=== PATIENT | male | born 1960 | race Caucasian/White ===

== ENCOUNTER 2017-08-06 10:45 | Inpatient (IN) | payer SELFPAY ==
[~2017-08-06] VITALS: Ht 185.4 cm; Wt 82.1 kg
[2017-08-06] VITALS (10 sets, daily range): BP systolic 110–163; BP diastolic 62–103; PULSE 83–136; RESP 18–25; TEMP 98.1–103.1; O2SAT 95–99
[~2017-08-06 10:45] MED LIST: 1-ME1LIQ PO; CEPH500C3 PO; CYCL-36 PO; IBUP800 PO; NAPR500 PO; PERC5TAB12 PO
[2017-08-06] MEDS ORDERED: IBUPROFEN 800 MG TAB PO ONE (11:00)
[2017-08-06] MEDS ORDERED: SODIUM CHLOR 0.9% 1000 ML INJ 1,000 ML IV ONE ×3 (11:00→12:30)
[2017-08-06] MEDS ORDERED: VANCOMYCIN INJ 1,000 MG in SODIUM CHLOR 0.9% 250 ML INJ 250 ML IV ONE (11:15)
[2017-08-06] MEDS ORDERED: PIPERACIL-TAZO 3.375 GM PREMIX 50 ML IV ONE (11:15)
--- NOTE | 2017-08-06 11:15 | PD ---
HPI Chief Complaint: General Weakness Time Seen by Provider: 11:08 Travel History International Travel<30 days: No Contact w/Intl Traveler<30days: No Traveled to known affect area: No History of Present Illness HPI This is a 57-year-old male with history of hypertension who presents via EMS for evaluation. For the past 4 days the patient has been complaining of pain to the right shinto region. He reports that he lives with his brother. Today he was walking from his brother's house to a friend's house when he felt very weak and fell in the field. At this point, the patient is complaining of generalized weakness, right shinto pain. Pain is an aching pain which is constant with no alleviating factors. he denies any blurred vision, chest pain , cough, sore throat, abdominal pain, nausea or vomiting, diarrhea or constipation. He denies any history of IV drug abuse. He endorses regular consumption of alcohol. He has no other complaints at this time. PFSH Past Medical History Hx Anticoagulant Therapy: No Blood Disorders: No Cancer: No Cardiovascular Problems: Yes (HTN) Chemotherapy: No Cerebrovascular Accident: No Diabetes: No Diminished Hearing: No Endocrine: No Gastrointestinal Disorders: Yes Genitourinary: No Hypertension: Yes Immune Disorder: No Implanted Vascular Access Dvce: No Musculoskeletal: No Neurologic: No Psychiatric: No Reproductive: No Respiratory: No Immunizations Current: No Pneumonia: Yes Radiation Therapy: No Tetanus Vaccination: < 5 Years Influenza Vaccination: No Past Surgical History Abdominal Surgery: Yes (APPENDIX REMOVAL A TEENAGER) AICD: No 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 denies Reported Meds & Prescriptions Reported Meds & Active Scripts Active No Active Prescriptions or Reported Medications Review of Systems Except as stated in HPI: all other systems reviewed are Neg Physical Exam Narrative GENERAL: This is a disheveled ill appearing male who is awake and alert, answering questions appropriately. SKIN: Warm and dry. There is some erythema and induration of the right shinto region. No discrete vesicles or papular lesions noted. HEAD: Atraumatic. Normocephalic. EYES: Pupils equal and round. No scleral icterus. No injection or drainage. ENT: No nasal bleeding or discharge. Mucous membranes pink and moist. Poor dentition without any point tenderness to palpation to any of the teeth, no trismus, no intraoral edema or erythema. NECK: Trachea midline. No JVD. No lymphadenopathy. Neck supple full range of motion. CARDIOVASCULAR: Regular rate and rhythm. No murmur appreciated. RESPIRATORY: No accessory muscle use. Clear to auscultation. Breath sounds equal bilaterally. GASTROINTESTINAL: Abdomen soft, non-tender, nondistended. Hepatic and splenic margins not palpable. MUSCULOSKELETAL: No obvious deformities. No clubbing. No cyanosis. No edema. NEUROLOGICAL: Awake and alert. No obvious cranial nerve deficits. Motor grossly within normal limits. Normal speech. PSYCHIATRIC: Appropriate mood and affect; insight and judgment normal. Data Data Last Documented VS Vital Signs Date Time Temp Pulse Resp B/P (MAP) Pulse Ox O2 Delivery O2 Flow Rate FiO2 08/06/17 13:00 108 25 117/65 (82) 98 Nasal Cannula 2.00 08/06/17 10:52 103.1 Orders Orders Electrocardiogram (08/06/17 11:00) Complete Blood Count With Diff (08/06/17 11:00) Comprehensive Metabolic Panel (08/06/17 11:00) Lactic Acid Sepsis Protocol (08/06/17 11:00) Magnesium (Mg) (08/06/17 11:00) Phosphorus (Po4) (08/06/17 11:00) Urinalysis - C+S If Indicated (08/06/17 11:00) Blood Culture (08/06/17 11:00) Chest, Single Ap (08/06/17 11:00) Ecg Monitoring (08/06/17 11:00) Iv Access Insert/Monitor (08/06/17 11:00) Oximetry (08/06/17 11:00) Ibuprofen (Motrin) (08/06/17 11:00) Sodium Chlor 0.9% 1000 Ml Inj (Ns 1000 M (08/06/17 11:00) Sodium Chlor 0.9% 1000 Ml Inj (Ns 1000 M (08/06/17 11:00) Ct Facial Bones W Iv Contrast (08/06/17 ) Ct Brain W/O Iv Contrast(Rout) (08/06/17 ) Vancomycin Inj (Vancomycin Inj) (08/06/17 11:15) Piperacil-Tazo 3.375 Gm Premix (Zosyn 3. (08/06/17 11:15) Creatine Kinase (Cpk) (08/06/17 11:15) Troponin I (08/06/17 11:15) Blood Gas Venous (Vbg) (08/06/17 11:20) Sodium Chlor 0.9% 1000 Ml Inj (Ns 1000 M (08/06/17 12:30) Potassium Chlor 20 Meq Premix (Kcl 20 Me (08/06/17 12:30) Magnesium Sulfate 1 Gm Premix (Magnesium (08/06/17 12:30) Prothrombin Time / Inr (Pt) (08/06/17 12:25) Act Partial Throm Time (Ptt) (08/06/17 12:25) Iohexol 350 Inj (Omnipaque 350 Inj) (08/06/17 12:49) Admit Order (Ed Use Only) (08/06/17 13:27) Labs Laboratory Tests Test 08/06/17 11:10 08/06/17 11:14 08/06/17 11:15 08/06/17 11:30 White Blood Count 7.8 TH/MM3 Red Blood Count 4.40 MIL/MM3 Hemoglobin 14.2 GM/DL Hematocrit 42.5 % Mean Corpuscular Volume 96.6 FL Mean Corpuscular Hemoglobin 32.3 PG Mean Corpuscular Hemoglobin Concent 33.4 % Red Cell Distribution Width 13.8 % Platelet Count 76 TH/MM3 Mean Platelet Volume 10.0 FL Neutrophils (%) (Auto) 85.8 % Lymphocytes (%) (Auto) 5.3 % Monocytes (%) (Auto) 8.0 % Eosinophils (%) (Auto) 0.2 % Basophils (%) (Auto) 0.7 % Neutrophils # (Auto) 6.7 TH/MM3 Lymphocytes # (Auto) 0.4 TH/MM3 Monocytes # (Auto) 0.6 TH/MM3 Eosinophils # (Auto) 0.0 TH/MM3 Basophils # (Auto) 0.1 TH/MM3 CBC Comment AUTO DIFF Differential Total Cells Counted 100 Neutrophils % (Manual) 75 % Band Neutrophils % 8 % Lymphocytes % 6 % Monocytes % 10 % Eosinophils % 1 % Neutrophils # (Manual) 6.5 TH/MM3 Differential Comment FINAL DIFF MANUAL Platelet Estimate LOW Platelet Morphology Comment NORMAL Red Cell Morphology Comment NORMAL Blood Urea Nitrogen 13 MG/DL Creatinine 0.92 MG/DL Random Glucose 136 MG/DL Total Protein 6.6 GM/DL Albumin 2.7 GM/DL Calcium Level 7.8 MG/DL Phosphorus Level 0.9 MG/DL Magnesium Level 1.4 MG/DL Alkaline Phosphatase 81 U/L Aspartate Amino Transf (AST/SGOT) 29 U/L Alanine Aminotransferase (ALT/SGPT) 19 U/L Total Bilirubin 2.1 MG/DL Sodium Level 135 MEQ/L Potassium Level 3.0 MEQ/L Chloride Level 103 MEQ/L Carbon Dioxide Level 21.6 MEQ/L Anion Gap 10 MEQ/L Estimat Glomerular Filtration Rate 85 ML/MIN Total Creatine Kinase 263 U/L Troponin I 0.07 NG/ML Lactic Acid Level 3.5 mmol/L Urine Color YELLOW Urine Turbidity CLEAR Urine pH 6.5 Urine Specific [place] 1.013 Urine Protein TRACE mg/dL Urine Glucose (UA) NEG mg/dL Urine Ketones TRACE mg/dL Urine Occult Blood SMALL Urine Nitrite NEG Urine Bilirubin NEG Urine Urobilinogen 8.0 MG/DL Urine Leukocyte Esterase NEG Urine RBC 7 /hpf Urine WBC 2 /hpf Urine Squamous Epithelial Cells <1 /hpf Urine Hyaline Casts 3 /lpf Urine Mucus FEW /lpf Microscopic Urinalysis Comment CATH-CULT NOT IND Blood Gas Puncture Site IV Blood Gas Patient Temperature 98.6 Venous Blood pH 7.48 Venous Blood Partial Pressure CO2 34 mmHg Venous Blood Partial Pressure O2 23 mmHg Venous Blood HCO3 25 mmol/L Venous Blood Oxygen Saturation 37 % Venous Blood Oxygen Content 7.2 Vol % Venous Blood Base Excess 1.4 mmol/L Blood Gas Inspired Oxygen 21 % [facility] Medical Decision Making Medical Screen Exam Complete: Yes Emergency Medical Condition: Yes Medical Record Reviewed: Yes Interpretation(s) Chest x-ray CONCLUSION: 1. Minimal basilar and dependent opacity most characteristic of atelectasis. No dense consolidation see CBC reveals a WBC count 7.8 with a percent band neutrophils CMP reveals a potassium of 3.0, sodium 135, phosphorus 0.9, calcium 7.8, magnesium 1.4, total bilirubin 2.1, troponin 0.07 Lactic acid 3.5 Urinalysis reveals small blood, trace ketones, 8 urobilinogen Differential Diagnosis Facial cellulitis, abscess, osteomyelitis, necrotizing fasciitis, erysipelas, malignant otitis externa, cavernous sinus thrombosis, bacteremia Narrative Course 57-year-old male has been expressing pain and swelling in the right shinto region of his face for the past 4 days, fevers over the past few days, presents today with worsening symptoms. He reports that he was feeling weak and fell in a field today. On initial examination the patient appears ill, he is tachycardic and febrile. He has erythematous and tender skin on the right side of his face/shinto region. The patient was given broad-spectrum antibiotics, additional IV fluids were administered as well as ibuprofen. The patient will be placed on ECG monitoring pulse oximeter. Basic lab work, blood cultures have been ordered. CT of the facial bones with IV contrast, CT brain without contrast has been ordered. CT face reveals: CONCLUSION: 1. Right-sided facial soft tissue swelling is seen. This could be related to an inflamed parotid gland. No abnormal fluid collection or abscess. 2. No soft tissue mass or adenopathy. CBC reveals 8% bands, CMP reveals potassium 3.0, troponin 0.07, magnesium 1.4, phosphorus 0.9, calcium 7.8, lactic acid is 3.5. The patient be given 20 mEq IV potassium chloride and 1 g IV magnesium. At this point in time the plan is to admit the patient for further evaluation and treatment of facial cellulitis, severe sepsis. Sepsis Criteria SIRS Criteria (2 or more): Temp > 100.9 or < 96.8, Heart rate over 90 Sepsis Criteria (SIRS+source): Infect source susp/known Severe Sepsis (+one): Lactate >2 Criteria Outcome: Meets severe sepsis criteria Diagnosis Primary Impression: Facial cellulitis Additional Impressions: Severe sepsis Elevated troponin Hypokalemia Admitting Information Admitting Physician Requests: Admit Scripts No Active Prescriptions or Reported Meds Gerardo Paulson Aug 06, 2017 11:15
[2017-08-06 11:33] LABS: AUTOMATED NEUTROPHIL # 6.7 TH/MM3 (1.8-7.7); BASOPHIL # 0.1 TH/MM3 (0-0.2); BASOPHIL % 0.7 % (0.0-2.0); EOSINOPHIL % 0.2 % (0.0-4.0); HEMATOCRIT 42.5 % (39.0-51.0); LYMPH % 5.3 % (9.0-44.0); LYMPHOCYTE # 0.4 TH/MM3 (1.0-4.8); MEAN CELL VOLUME 96.6 FL (80.0-100.0); MEAN CORPUSCULAR HEMOGLOBIN 32.3 PG (27.0-34.0); MEAN CORPUSCULAR HGB CONC 33.4 % (32.0-36.0); NEUT % 85.8 % (16.0-70.0); PLATELET COUNT 76 TH/MM3 (150-450); RED CELL DISTRIBUTION WIDTH 13.8 % (11.6-17.2); WHITE BLOOD COUNT 7.8 TH/MM3 (4.0-11.0)
[2017-08-06 11:36] LABS: HEMO FLAGS AUTO DIFF
[2017-08-06 11:40] LABS: BLOOD GAS VENOUS BASE EXCESS 1.4 mmol/L (-2-2); BLOOD GAS VENOUS HCO3 25 mmol/L (22-26); BLOOD GAS VENOUS O2 CONTENT 7.2 Vol % (9.0-17.0); BLOOD GAS VENOUS O2 HGB SAT 37 % (70-76); BLOOD GAS VENOUS PCO2 34 mmHg (44-48); BLOOD GAS VENOUS PO2 23 mmHg (35-40); BLOOD GAS VENOUS pH 7.48 (7.360-7.400); CRITICAL VALUE YES; DRAW SITE IV; FIO2 21 %; STAT YES; TEMP CORR TO 98.6
--- NOTE | 2017-08-06 11:49 | RADRPT ---
EXAM DATE/TIME: 08/06/2017 11:29 [facility] COMPARISON: CHEST SINGLE AP, August 24, 2015, 23:46. INDICATIONS : Fever, shortness of breath. MEDICAL HISTORY : Hypertension. Smoker. SURGICAL HISTORY : None. ENCOUNTER: Initial ACUITY: 1 week PAIN SCORE: 0/10 LOCATION: Bilateral chest FINDINGS: A single view of the chest demonstrates minimal basilar dependent opacity most characteristic of atel ectasis. No dense consolidation. No effusion or pneumothorax. Heart size mildly enlarged. Tortuous ao rta. CONCLUSION: 1. Minimal basilar and dependent opacity most characteristic of atelectasis. No dense consolidation s een. Murray Schreiber MD on August 06, 2017 at 11:46 Board Certified Radiologist. This report was verified electronically.
[2017-08-06 11:53] LABS: ANION GAP 10 MEQ/L (5-15); AST (GOT) 29 U/L (15-37); BICARBONATE 21.6 MEQ/L (21.0-32.0); BLOOD UREA NITROGEN 13 MG/DL (7-18); CHLORIDE 103 MEQ/L (98-107); GLOMERULAR FILTRATION RATE 85 ML/MIN (>89); MAGNESIUM 1.4 MG/DL (1.5-2.5); SODIUM (NA) 135 MEQ/L (136-145)
[2017-08-06 11:57] LABS: ALKALINE PHOSPHATASE 81 U/L (45-117); ALT (GPT) 19 U/L (12-78); TOTAL BILIRUBIN ADULT 2.1 MG/DL (0.2-1.0)
[2017-08-06 12:00] LABS: BLOOD, URINE SMALL (NEG); COMMENT (UR) CATH-CULT NOT IND; CULTURE IF INDICATED CATH CULTURE NOT IND; GLUCOSE,URINE NEG (NEG); HYALINE CAST, URINE 3 /lpf (RARE); KETONE, URINE TRACE mg/dL (NEG); MUCUS URINE FEW /lpf (OCC); NITRITE,URINE NEG (NEG); PH, URINE 6.5 (5.0-8.5); SQUAMOUS EPITHELIAL CELL URINE <1 /hpf (0-5); URINE COLOR YELLOW (YELLW/STRAW)
[2017-08-06 12:03] LABS: BANDS 8 % (0-6); EOSINOPHILS 1 % (0-4); NEUTROPHIL # MANUAL DIFF 6.5 TH/MM3 (1.8-7.7); PLATELET ESTIMATE SMEAR LOW (NORMAL); PLATELET MORPHOLOGY NORMAL (NORMAL); POLYS (SEG NEUTROPHILS) 75 % (16-70); SCAN/DIFF FINAL DIFF MANUAL; WBC DIFF SAMPLE 100
[2017-08-06] MEDS ORDERED: POTASSIUM CHLOR 20 MEQ PREMIX 100 ML IV ONE (12:30)
[2017-08-06] MEDS ORDERED: MAGNESIUM SULFATE 1 GM PREMIX 100 ML IV ONE (12:30)
--- NOTE | 2017-08-06 12:48 | RADRPT ---
EXAM DATE/TIME: 08/06/2017 12:36 [facility] COMPARISON: CT BRAIN W/O CONTRAST, November 14, 2013, 6:39. INDICATIONS : Right side facial swelling, generalized weakness. Frequent falls. Cephalgia. RADIATION DOSE: 39.02 CTDIvol (mGy) MEDICAL HISTORY : Hypertension. SURGICAL HISTORY : None. ENCOUNTER: Initial ACUITY: 1 day PAIN SCALE: 3/10 LOCATION: Right cranial TECHNIQUE: Multiple contiguous axial images were obtained of the head. Using automated exposure control and adj ustment of the mA and/or kV according to patient size, radiation dose was kept as low as reasonably a chievable to obtain optimal diagnostic quality images. DICOM format image data is available electro nically for review and comparison. FINDINGS: CEREBRUM: The ventricles are normal for age. No evidence of midline shift, mass lesion, hemorrhage or acute in farction. No extra-axial fluid collections are seen. POSTERIOR FOSSA: The cerebellum and brainstem are intact. The 4th ventricle is midline. The cerebellopontine angle i s unremarkable. EXTRACRANIAL: The visualized portion of the orbits is intact. SKULL: The calvaria is intact. No evidence of skull fracture. CONCLUSION: No acute intracranial disease. Ra Mcdaniel MD on August 06, 2017 at 12:45 Board Certified Radiologist. This report was verified electronically.
[2017-08-06] MEDS ORDERED: IOHEXOL 350 MG/ML 10 ML VIAL (for RAD DIAG) IVCONTRAST ONE (12:49)
--- NOTE | 2017-08-06 13:06 | RADRPT ---
EXAM DATE/TIME: 08/06/2017 12:36 [facility] COMPARISON: No previous studies available for comparison. INDICATIONS : Right side facial swelling, generalized weakness. Frequent falls. Cephalgia. IV CONTRAST: 85 cc Omnipaque 350 (iohexol) IV RADIATION DOSE: 46.48 CTDIvol (mGy) MEDICAL HISTORY : Hypertension. SURGICAL HISTORY : None. ENCOUNTER: Initial ACUITY: 1 day PAIN SCALE: 5/10 LOCATION: Right facial TECHNIQUE: Volumetric scanning of the facial bones was performed. Using automated exposure control and adjustme nt of the mA and/or kV according to patient size, radiation dose was kept as low as reasonably achiev able to obtain optimal diagnostic quality images. DICOM format image data is available electronicall y for review and comparison. FINDINGS: ORBITS: The orbital and infraorbital osseous structures are intact. The retroconal structures have a normal configuration. No radiopaque foreign bodies are seen. NASAL BONE: The nasal bone and maxillary spine are intact ZYGOMATIC ARCHES: Symmetric without evidence of fracture. SINUSES: The maxillary, ethmoid and frontal sinuses are intact. No air-fluid levels seen. NASAL CAVITY: The nasal septum is intact and midline. The lacrimal ducts are intact. SOFT TISSUES: Right-sided facial soft-tissue swelling is seen. No fluid collection or abscess. INTRACRANIAL: No intracranial air seen. CRIBIFORM PLATE: Grossly intact. CONCLUSION: 1. Right-sided facial soft tissue swelling is seen. This could be related to an inflamed parotid glan d. No abnormal fluid collection or abscess. 2. No soft tissue mass or adenopathy. Ra Mcdaniel MD on August 06, 2017 at 13:03 Board Certified Radiologist. This report was verified electronically.
[2017-08-06 13:28] LABS: LACTIC ACID GHOST NOT REPORTABLE
[2017-08-06] MEDS ORDERED: SENNOSIDES 8.6 MG TAB PO PRN (13:30)
[2017-08-06] MEDS ORDERED: MAGNESIUM HYDROXIDE SUSP 30 ML CUP PO PRN (13:30)
[2017-08-06] MEDS ORDERED: LACTULOSE SYRUP 20 GM/30 ML CUP PO PRN (13:30)
[2017-08-06] MEDS ORDERED: NALOXONE HCL 0.4 MG/ML AMP IV PUSH PRN (13:30)
[2017-08-06] MEDS ORDERED: TEMAZEPAM 15 MG CAP PO PRN (13:30)
[2017-08-06] MEDS ORDERED: SODIUM CHLORIDE 0.9% FLUSH 10 ML FLUSH IV FLUSH PRN (13:30)
[2017-08-06] MEDS ORDERED: BISACODYL 10 MG SUPP RECTAL PRN (13:30)
[2017-08-06] MEDS ORDERED: ONDANSETRON HCL 4 MG/2 ML VIAL IVP PRN (13:30)
--- NOTE | 2017-08-06 13:49 | EKG ---
Date Performed: 08/06/2017 Time Performed: 10:54:38 PTAGE: 57 years EKG: SINUS TACHYCARDIA NONSPECIFIC ST & T-WAVE ABNORMALITY ABNORMAL RHYTHM ECG Compared to the PREVIOUS TRACING from 03/16/16, rate has increased DOCTOR: Leroy Kilgore Interpretating Date/Time 08/06/2017 13:47:29
--- NOTE | 2017-08-06 13:51 | PD ---
Physical Exam Narrative GENERAL: Well-nourished, well-developed patient. Well-appearing SKIN: Warm and dry. HEAD: Swelling noted to right sikh area with overlying erythema without associated crepitus EYES: No injection or drainage. ENT: No nasal drainage noted. NECK: Supple, trachea midline. No meningeal signs CARDIOVASCULAR: Tachycardic rate and regular rhythm RESPIRATORY: Breath sounds equal bilaterally. No accessory muscle use. GASTROINTESTINAL: Abdomen soft, non-tender, nondistended. EXTREMITIES: No edema. NEUROLOGICAL: Awake and alert. Motor and sensory grossly within normal limits. Normal speech. Data Data Last Documented VS Vital Signs Date Time Temp Pulse Resp B/P (MAP) Pulse Ox O2 Delivery O2 Flow Rate FiO2 08/06/17 11:13 126 21 163/103 (123) 08/06/17 10:52 95 Room Air 08/06/17 10:52 103.1 Orders Orders Electrocardiogram (08/06/17 11:00) Complete Blood Count With Diff (08/06/17 11:00) Comprehensive Metabolic Panel (08/06/17 11:00) Lactic Acid Sepsis Protocol (08/06/17 11:00) Magnesium (Mg) (08/06/17 11:00) Phosphorus (Po4) (08/06/17 11:00) Urinalysis - C+S If Indicated (08/06/17 11:00) Blood Culture (08/06/17 11:00) Chest, Single Ap (08/06/17 11:00) Ecg Monitoring (08/06/17 11:00) Iv Access Insert/Monitor (08/06/17 11:00) Oximetry (08/06/17 11:00) Ibuprofen (Motrin) (08/06/17 11:00) Sodium Chlor 0.9% 1000 Ml Inj (Ns 1000 M (08/06/17 11:00) Sodium Chlor 0.9% 1000 Ml Inj (Ns 1000 M (08/06/17 11:00) Ct Facial Bones W Iv Contrast (08/06/17 ) Ct Brain W/O Iv Contrast(Rout) (08/06/17 ) Vancomycin Inj (Vancomycin Inj) (08/06/17 11:15) Piperacil-Tazo 3.375 Gm Premix (Zosyn 3. (08/06/17 11:15) Creatine Kinase (Cpk) (08/06/17 11:15) Troponin I (08/06/17 11:15) Blood Gas Venous (Vbg) (08/06/17 11:20) Sodium Chlor 0.9% 1000 Ml Inj (Ns 1000 M (08/06/17 12:30) Potassium Chlor 20 Meq Premix (Kcl 20 Me (08/06/17 12:30) Magnesium Sulfate 1 Gm Premix (Magnesium (08/06/17 12:30) Prothrombin Time / Inr (Pt) (08/06/17 12:25) Act Partial Throm Time (Ptt) (08/06/17 12:25) Iohexol 350 Inj (Omnipaque 350 Inj) (08/06/17 12:49) Admit Order (Ed Use Only) (08/06/17 13:27) Labs Laboratory Tests Test 08/06/17 11:10 08/06/17 11:14 08/06/17 11:15 08/06/17 11:30 White Blood Count 7.8 TH/MM3 Red Blood Count 4.40 MIL/MM3 Hemoglobin 14.2 GM/DL Hematocrit 42.5 % Mean Corpuscular Volume 96.6 FL Mean Corpuscular Hemoglobin 32.3 PG Mean Corpuscular Hemoglobin Concent 33.4 % Red Cell Distribution Width 13.8 % Platelet Count 76 TH/MM3 Mean Platelet Volume 10.0 FL Neutrophils (%) (Auto) 85.8 % Lymphocytes (%) (Auto) 5.3 % Monocytes (%) (Auto) 8.0 % Eosinophils (%) (Auto) 0.2 % Basophils (%) (Auto) 0.7 % Neutrophils # (Auto) 6.7 TH/MM3 Lymphocytes # (Auto) 0.4 TH/MM3 Monocytes # (Auto) 0.6 TH/MM3 Eosinophils # (Auto) 0.0 TH/MM3 Basophils # (Auto) 0.1 TH/MM3 CBC Comment AUTO DIFF Differential Total Cells Counted 100 Neutrophils % (Manual) 75 % Band Neutrophils % 8 % Lymphocytes % 6 % Monocytes % 10 % Eosinophils % 1 % Neutrophils # (Manual) 6.5 TH/MM3 Differential Comment FINAL DIFF MANUAL Platelet Estimate LOW Platelet Morphology Comment NORMAL Red Cell Morphology Comment NORMAL Blood Urea Nitrogen 13 MG/DL Creatinine 0.92 MG/DL Random Glucose 136 MG/DL Total Protein 6.6 GM/DL Albumin 2.7 GM/DL Calcium Level 7.8 MG/DL Phosphorus Level 0.9 MG/DL Magnesium Level 1.4 MG/DL Alkaline Phosphatase 81 U/L Aspartate Amino Transf (AST/SGOT) 29 U/L Alanine Aminotransferase (ALT/SGPT) 19 U/L Total Bilirubin 2.1 MG/DL Sodium Level 135 MEQ/L Potassium Level 3.0 MEQ/L Chloride Level 103 MEQ/L Carbon Dioxide Level 21.6 MEQ/L Anion Gap 10 MEQ/L Estimat Glomerular Filtration Rate 85 ML/MIN Total Creatine Kinase 263 U/L Troponin I 0.07 NG/ML Lactic Acid Level 3.5 mmol/L Urine Color YELLOW Urine Turbidity CLEAR Urine pH 6.5 Urine Specific [place] 1.013 Urine Protein TRACE mg/dL Urine Glucose (UA) NEG mg/dL Urine Ketones TRACE mg/dL Urine Occult Blood SMALL Urine Nitrite NEG Urine Bilirubin NEG Urine Urobilinogen 8.0 MG/DL Urine Leukocyte Esterase NEG Urine RBC 7 /hpf Urine WBC 2 /hpf Urine Squamous Epithelial Cells <1 /hpf Urine Hyaline Casts 3 /lpf Urine Mucus FEW /lpf Microscopic Urinalysis Comment CATH-CULT NOT IND Blood Gas Puncture Site IV Blood Gas Patient Temperature 98.6 Venous Blood pH 7.48 Venous Blood Partial Pressure CO2 34 mmHg Venous Blood Partial Pressure O2 23 mmHg Venous Blood HCO3 25 mmol/L Venous Blood Oxygen Saturation 37 % Venous Blood Oxygen Content 7.2 Vol % Venous Blood Base Excess 1.4 mmol/L Blood Gas Inspired Oxygen 21 % [facility] Supervised Visit with JENNIFER: Yes Interpretation(s) CBC & BMP Diagram 08/06/17 11:10 Total Protein 6.6, Albumin 2.7 L, Calcium Level 7.8 L, Phosphorus Level 0.9 L, Magnesium Level 1.4 L, Alkaline Phosphatase 81, Aspartate Amino Transf (AST/SGOT ) 29, Alanine Aminotransferase (ALT/SGPT) 19, Total Bilirubin 2.1 H Last 24 hours Impressions Chest X-Ray 08/06/17 1100 Signed Impressions: Service Date/Time: July 11:29 - CONCLUSION: 1. Minimal basilar and dependent opacity most characteristic of atelectasis. No dense consolidation seen. Murray Schreiber MD Maxillofacial CT 08/06/17 0000 Signed Impressions: Service Date/Time: July 12:36 - CONCLUSION: 1. Right-sided facial soft tissue swelling is seen. This could be related to an inflamed parotid gland. No abnormal fluid collection or abscess. 2. No soft tissue mass or adenopathy. Ra Mcdaniel MD Head CT 08/06/17 0000 Signed Impressions: Service Date/Time: July 12:36 - CONCLUSION: No acute intracranial disease. Ra Mcdaniel MD Narrative Course I, Dr. perry, have reviewed the advance practice practitioner's documentation and am in agreement, met with the patient face to face, made the diagnosis, and the medical decision making was done by me. *My assessment and Findings: 57-year-old male presents with fever, facial swelling with redness and general ill feeling over the past couple of days. Workup reveals severe sepsis without associated abscess on CT. He'll be admitted for IV antibiotic therapy and IV fluid hydration. Sepsis Criteria SIRS Criteria (2 or more): Temp > 100.9 or < 96.8, Heart rate over 90 Sepsis Criteria (SIRS+source): Infect source susp/known Severe Sepsis (+one): Lactate >2 Criteria Outcome: Meets severe sepsis criteria Diagnosis Primary Impression: Facial cellulitis Additional Impressions: Severe sepsis Elevated troponin Hypokalemia Admitting Information Admitting Physician Requests: Admit Scripts No Active Prescriptions or Reported Meds Amanda Perry MD Aug 06, 2017 13:51
--- NOTE | 2017-08-06 14:38 | HHI.HP ---
HPI Service [facility] Primary Care Physician No Primary Care Physician Admission Diagnosis severe sepsis, facial cellulitis Diagnoses: Chief Complaint: Right-sided facial pain. Travel History International Travel<30 Days: No Contact w/Intl Traveler <30 Da: No Traveled to Known Affected Are: No Sepsis Criteria SIRS Criteria (2 or more): Temp > 100.9 or < 96.8, Heart rate over 90, RR > 20 or PaCO2 < 32 Sepsis Criteria (SIRS+source): Infect source susp/known Severe Sepsis (+one): Lactate >2 Criteria Outcome: Meets SIRS criteria, Meets sepsis criteria, Meets severe sepsis criteria History of Present Illness Mr. Mancuso is a 57-year-old male with a history of hypertension who presents to the emergency department due to right sided scalp tenderness and erythema. About 4-5 days ago he started noticing pain and redness on his right temporal area. He denies any fever, chills at home. Denies any nausea, vomiting or vision changes. Today he was walking from his brother's house and felt very weak. He denies any trouble chewing food, no dysphagia. Denies any chest pain, shortness of breath. No changes in bladder or bowel habits. On arrival temperature 103.1F, pulse 136, respiration 25, blood pressure 163/99, oxygen saturation 95% on room air. WBC 7.8, hemoglobin 14.2 hematocrit 42.5 MCV 96.6 platelets 76. Sodium 135, potassium 3.0, BUN 13, creatinine 0.92, random glucose 136. Lactic acid 3.5. Head CT shows no acute intracranial disease. Maxillofacial CT indicates right-sided facial soft tissue swelling possibly related to inflamed parotid gland. No abnormal fluid collection or abscess. Review of Systems Except as stated in HPI: all other systems reviewed are Neg Past Family Social History Past Medical History Hypertension Past Surgical History Appendectomy Reported Medications No meds on a regular basis. Allergies: Coded Allergies: *MDRO Multi-Drug Resistant Organism (Verified Allergy, Unknown, 08/06/17) MRSA pt. denies Family History No family history of heart disease, cancer. Social History Patient smokes about 1 pack a day and drinks 4 beers a day. Denies using any drugs including IV drugs. Physical Exam Vital Signs Vital Signs Date Time Temp Pulse Resp B/P (MAP) Pulse Ox O2 Delivery O2 Flow Rate FiO2 08/06/17 14:00 100 21 110/62 (78) 99 Room Air 08/06/17 13:00 108 25 117/65 (82) 98 Nasal Cannula 2.00 08/06/17 12:00 122 24 140/73 (95) 96 Nasal Cannula 2.00 08/06/17 11:13 126 21 163/103 (123) 08/06/17 10:52 95 Room Air 08/06/17 10:52 103.1 136 25 163/99 (120) 95 08/06/17 10:52 103.1 136 25 163/99 (120) 95 Room Air Physical Exam GENERAL: This is a well-nourished, well-developed patient, in no apparent distress. Somewhat disheveled. SKIN: No rashes, ecchymoses or lesions. Warm and dry. HEAD: Atraumatic. Normocephalic. Right sided temporal region erythema and tenderness on palpation. No pain on eye movements, no erythema around the eyes. EYES: Pupils equal round and reactive. No injection or drainage. ENT: Nose without bleeding, purulent drainage or septal hematoma. Airway patent. NECK: Trachea midline. No lymphadenopathy. Supple, nontender, no meningeal signs. CARDIOVASCULAR: Regular rate and rhythm without murmurs, gallops, or rubs. No JVD. RESPIRATORY: Clear to auscultation. Breath sounds equal bilaterally. No wheezes , rales, or rhonchi. GASTROINTESTINAL: Abdomen soft, non-tender, nondistended. No guarding. MUSCULOSKELETAL: Extremities without clubbing, cyanosis, or edema. NEUROLOGICAL: Cranial nerves II through XII intact. No focal neurological deficits. Normal speech. Drowsy but answers questions appropriately. Laboratory Laboratory Tests Test 08/06/17 11:10 08/06/17 11:14 08/06/17 11:15 08/06/17 11:30 White Blood Count 7.8 Red Blood Count 4.40 Hemoglobin 14.2 Hematocrit 42.5 Mean Corpuscular Volume 96.6 Mean Corpuscular Hemoglobin 32.3 Mean Corpuscular Hemoglobin Concent 33.4 Red Cell Distribution Width 13.8 Platelet Count 76 Mean Platelet Volume 10.0 Neutrophils (%) (Auto) 85.8 Lymphocytes (%) (Auto) 5.3 Monocytes (%) (Auto) 8.0 Eosinophils (%) (Auto) 0.2 Basophils (%) (Auto) 0.7 Neutrophils # (Auto) 6.7 Lymphocytes # (Auto) 0.4 Monocytes # (Auto) 0.6 Eosinophils # (Auto) 0.0 Basophils # (Auto) 0.1 CBC Comment AUTO DIFF Differential Total Cells Counted 100 Neutrophils % (Manual) 75 Band Neutrophils % 8 Lymphocytes % 6 Monocytes % 10 Eosinophils % 1 Neutrophils # (Manual) 6.5 Differential Comment FINAL DIFF MANUAL Platelet Estimate LOW Platelet Morphology Comment NORMAL Red Cell Morphology Comment NORMAL Blood Urea Nitrogen 13 Creatinine 0.92 Random Glucose 136 Total Protein 6.6 Albumin 2.7 Calcium Level 7.8 Phosphorus Level 0.9 Magnesium Level 1.4 Alkaline Phosphatase 81 Aspartate Amino Transf (AST/SGOT) 29 Alanine Aminotransferase (ALT/SGPT) 19 Total Bilirubin 2.1 Sodium Level 135 Potassium Level 3.0 Chloride Level 103 Carbon Dioxide Level 21.6 Anion Gap 10 Estimat Glomerular Filtration Rate 85 Total Creatine Kinase 263 Troponin I 0.07 Lactic Acid Level 3.5 Urine Color YELLOW Urine Turbidity CLEAR Urine pH 6.5 Urine Specific [place] 1.013 Urine Protein TRACE Urine Glucose (UA) NEG Urine Ketones TRACE Urine Occult Blood SMALL Urine Nitrite NEG Urine Bilirubin NEG Urine Urobilinogen 8.0 Urine Leukocyte Esterase NEG Urine RBC 7 Urine WBC 2 Urine Squamous Epithelial Cells <1 Urine Hyaline Casts 3 Urine Mucus FEW Microscopic Urinalysis Comment CATH-CULT NOT IND Blood Gas Puncture Site IV Blood Gas Patient Temperature 98.6 Venous Blood pH 7.48 Venous Blood Partial Pressure CO2 34 Venous Blood Partial Pressure O2 23 Venous Blood HCO3 25 Venous Blood Oxygen Saturation 37 Venous Blood Oxygen Content 7.2 Venous Blood Base Excess 1.4 Blood Gas Inspired Oxygen 21 Date/Time Source Procedure Growth Status 08/06/17 11:10 Blood Peripheral Aerobic Blood Culture Pending Received 08/06/17 11:10 Blood Peripheral Anaerobic Blood Culture Pending Received Result Diagram: 08/06/17 1110 08/06/17 1110 Imaging Last Impressions Chest X-Ray 08/06/17 1100 Signed Impressions: Service Date/Time: July 11:29 - CONCLUSION: 1. Minimal basilar and dependent opacity most characteristic of atelectasis. No dense consolidation seen. Murray Schreiber MD Maxillofacial CT 08/06/17 0000 Signed Impressions: Service Date/Time: July 12:36 - CONCLUSION: 1. Right-sided facial soft tissue swelling is seen. This could be related to an inflamed parotid gland. No abnormal fluid collection or abscess. 2. No soft tissue mass or adenopathy. Ra Mcdaniel MD Head CT 08/06/17 0000 Signed Impressions: Service Date/Time: July 12:36 - CONCLUSION: No acute intracranial disease. Ra Mcdaniel MD Capmelissa VTE Risk Assessment Caprini VTE Risk Assessment: Mod/High Risk (score >= 2) Caprini Risk Assessment Model Point Value = 1 Point Value = 2 Point Value = 3 Point Value = 5 Age 41-60 Minor surgery BMI > 25 kg/m2 Swollen legs Varicose veins or History of unexplained or recurrent spontaneous Oral contraceptives or hormone replacement Sepsis (< 1 month) Serious lung disease, including pneumonia (< 1 month) Abnormal pulmonary function Acute myocardial infarction Congestive heart failure (< 1 month) History of inflammatory bowel disease Medical patient at bed rest Age 61-74 Arthroscopic surgery Major open surgery (> 45 min) Laparoscopic surgery (> 45 min) Malignancy Confined to bed (> 72 hours) Immobilizing plaster cast Central venous access Age >= 75 History of VTE Family history of VTE Factor V Leiden Prothrombin [id number] Lupus anticoagulant Anticardiolipin antibodies Elevated serum homocysteine Heparin-induced thrombocytopenia Other congenital or acquired thrombophilia Stroke (< 1 month) Elective arthroplasty Hip, pelvis, or leg fracture Acute spinal cord injury (< 1 month) Prophylaxis Regimen Total Risk Factor Score Risk Level Prophylaxis Regimen 0-1 Low Early ambulation 2 Moderate Order ONE of the following: *Sequential Compression Device (SCD) *Heparin 5000 units SQ BID 3-4 Higher Order ONE of the following medications: *Heparin 5000 units SQ TID *Enoxaparin/Lovenox 40 mg SQ daily (WT < 150 kg, CrCl > 30 mL/min) *Enoxaparin/Lovenox 30 mg SQ daily (WT < 150 kg, CrCl > 10-29 mL/min) *Enoxaparin/Lovenox 30 mg SQ BID (WT < 150 kg, CrCl > 30 mL/min) AND/OR *Sequential Compression Device (SCD) 5 or more Highest Order ONE of the following medications: *Heparin 5000 units SQ TID (Preferred with Epidurals) *Enoxaparin/Lovenox 40 mg SQ daily (WT < 150 kg, CrCl > 30 mL/min) *Enoxaparin/Lovenox 30 mg SQ daily (WT < 150 kg, CrCl > 10-29 mL/min) *Enoxaparin/Lovenox 30 mg SQ BID (WT < 150 kg, CrCl > 30 mL/min) AND *Sequential Compression Device (SCD) Assessment and Plan Problem List: (1) Severe sepsis ICD Code: A41.9 - Sepsis, unspecified organism; R65.20 - Severe sepsis without septic shock Status: Acute (2) Facial cellulitis ICD Code: L03.211 - Cellulitis of face Status: Acute (3) Hypomagnesemia ICD Code: E83.42 - Hypomagnesemia (4) Hypokalemia ICD Code: E87.6 - Hypokalemia; R65.20 - Severe sepsis without septic shock Status: Acute (5) Thrombocytopenia ICD Code: D69.6 - Thrombocytopenia Status: Acute Assessment and Plan Mr. Mancuso is a 57-year-old male with a history of hypertension, alcohol abuse who presents to the emergency Department due to 4-5 day duration of right-sided temporal tenderness and erythema. He also felt very weak today. Upon arrival patient was tachycardic, tachypneic, fever of 103.1F and lactic acid 3.5. CT maxillofacial shows right-sided soft tissue infection. - Severe sepsis (patient had temperature 103.1F, heart rate 136, respiration 25 , lactic acid 3.5, known infection right temporal cellulitis) - Right temporal cellulitis - Possible parotid gland inflammation - Patient was started on vancomycin and Zosyn in the emergency department. We'll continue Vanco and Zosyn for now. - Continue normal saline at 100 cc per hour. - Blood cultures pending. - Hypertension - Currently normotensive blood pressure 110/62. If necessary, we'll consider first-line blood pressure medication calcium channel prashant or BRITANY inhibitor. - Hypomagnesemia -magnesium 1.4 - Hypokalemia - potassium 3.0 - We'll replace with IV magnesium sulfate and IV KCl. - Thrombocytopenia - Likely due to alcohol abuse - We'll continue to monitor. - Alcohol abuse - Tobacco abuse - Patient is counseled to quit alcohol and tobacco. - We'll start patient on CIWA protocol. Full code. Brandenx. Physician Certification 2 Midnight Certification Type: Admission for Inpatient Services Order for Inpatient Services The services are ordered in accordance with Medicare regulations or non- Medicare payer requirements, as applicable. In the case of services not specified as inpatient-only, they are appropriately provided as inpatient services in accordance with the 2-midnight benchmark. Estimated LOS (days): 2 days is the estimated time the patient will need to remain in the hospital, assuming treatment plan goals are met and no additional complications. Post-Hospital Plan: Home Good Regan DO Aug 06, 2017 14:38
[2017-08-06 14:39] LABS: APTT (PATIENT) 28.9 SEC (24.3-30.1); INTERNATIONAL NORMALIZED RATIO 1.2 RATIO; PROTHROMBIN TIME - PATIENT 13.4 SEC (9.8-11.6)
[2017-08-06] MEDS ORDERED: LORazepam 2 MG/ML VIAL IV PUSH PRN ×2 (15:00)
[2017-08-06] MEDS ORDERED: LORazepam 2 MG TAB PO PRN (15:00)
[2017-08-06] MEDS ORDERED: Vancomycin Consult Pharmacy 1 EA OTHER SCH (15:00)
[2017-08-06] MEDS ORDERED: LORazepam 1 MG TAB PO PRN (15:00)
[2017-08-06] MEDS ORDERED: FLUMAZENIL 0.5 MG/5 ML VIAL IV PUSH PRN (15:00)
[2017-08-06] MEDS: SODIUM CHLOR 0.9% 1000 ML INJ 1,000 ML IV SCH ×2 (15:27→23:29)
[2017-08-06] MEDS: ENOXAPARIN SODIUM 40 MG/0.4 ML SYRINGE SQ SCH (16:27)
[2017-08-06] MEDS: MAGNESIUM SULFATE 1 GM PREMIX 100 ML IV SCH ×2 (17:48→19:14)
[2017-08-06] MEDS: POTASSIUM CHLOR 20 MEQ PREMIX 100 ML IV SCH ×2 (19:14→21:55)
[2017-08-06] MEDS: ACETAMINOPHEN 325 MG TAB PO PRN (20:10)
[2017-08-06] MEDS: VANCOMYCIN INJ 1,500 MG in SODIUM CHLORID 0.9% 500 ML INJ 500 ML IV SCH (20:11)
[2017-08-06] MEDS: PIPERACIL-TAZO 4.5 GM PREMIX 100 ML IV SCH (20:12)
[2017-08-06] MEDS: SODIUM CHLORIDE 0.9% FLUSH 10 ML FLUSH IV FLUSH SCH (20:12)
[2017-08-06] MEDS: DOCUSATE SODIUM 50 MG/SENNA 8.6 MG TAB PO SCH (20:12)
[2017-08-06] MEDS: LORazepam 2 MG/ML VIAL IV PUSH PRN (21:54)
[2017-08-07] VITALS (8 sets, daily range): BP systolic 126–179; BP diastolic 68–106; PULSE 78–103; RESP 16–22; TEMP 97.4–102.4; O2SAT 93–98
[2017-08-07] MEDS: PIPERACIL-TAZO 4.5 GM PREMIX 100 ML IV SCH ×3 (03:06→19:43)
[2017-08-07] MEDS: LORazepam 2 MG/ML VIAL IV PUSH PRN ×5 (03:07→20:59)
[2017-08-07 05:52] LABS: AUTOMATED NEUTROPHIL # 7.8 TH/MM3 (1.8-7.7); BASOPHIL % 0.4 % (0.0-2.0); EOSINOPHIL # 0.2 TH/MM3 (0-0.4); EOSINOPHIL % 2.5 % (0.0-4.0); LYMPH % 5.8 % (9.0-44.0); LYMPHOCYTE # 0.6 TH/MM3 (1.0-4.8); MEAN CELL VOLUME 98.5 FL (80.0-100.0); MEAN CORPUSCULAR HEMOGLOBIN 32.7 PG (27.0-34.0); MEAN CORPUSCULAR HGB CONC 33.2 % (32.0-36.0); MONO % 9.8 % (0.0-8.0); NEUT % 81.5 % (16.0-70.0); PLATELET COUNT 65 TH/MM3 (150-450); RED BLOOD COUNT 3.85 MIL/MM3 (4.50-5.90); RED CELL DISTRIBUTION WIDTH 14.2 % (11.6-17.2); WHITE BLOOD COUNT 9.6 TH/MM3 (4.0-11.0)
[2017-08-07 05:55] LABS: HEMO FLAGS AUTO DIFF
[2017-08-07] MEDS ORDERED: IBUPROFEN 800 MG TAB PO ONE (06:15)
[2017-08-07 06:27] LABS: BICARBONATE 24.7 MEQ/L (21.0-32.0); POTASSIUM 3.4 MEQ/L (3.5-5.1)
[2017-08-07 06:38] LABS: CALCIUM-PROTEIN CORRECTED 8.1 MG/DL (8.5-10.1)
[2017-08-07 07:12] LABS: BANDS 12 % (0-6); EOSINOPHILS 2 % (0-4); NEUTROPHIL # MANUAL DIFF 8.1 TH/MM3 (1.8-7.7); POLYS (SEG NEUTROPHILS) 72 % (16-70); WBC DIFF SAMPLE 100
[2017-08-07 07:13] LABS: PLATELET ESTIMATE SMEAR LOW (NORMAL); PLATELET MORPHOLOGY NORMAL (NORMAL); SCAN/DIFF FINAL DIFF MANUAL
[2017-08-07] MEDS: VANCOMYCIN INJ 1,500 MG in SODIUM CHLORID 0.9% 500 ML INJ 500 ML IV SCH ×2 (08:05→20:59)
[2017-08-07] MEDS: DOCUSATE SODIUM 50 MG/SENNA 8.6 MG TAB PO SCH ×2 (08:50→20:59)
[2017-08-07] MEDS: SODIUM CHLORIDE 0.9% FLUSH 10 ML FLUSH IV FLUSH SCH ×2 (08:50→19:43)
[2017-08-07] MEDS: SODIUM CHLOR 0.9% 1000 ML INJ 1,000 ML IV SCH ×2 (09:29→19:46)
--- NOTE | 2017-08-07 10:08 | HHI.PR ---
Subjective Remarks Follow-up for scalp cellulitis, alcohol withdrawal. Patient is resting in bed however wakes up on verbal commands. Per nursing he required Ativan this morning per protocol. Has been afebrile. Objective Vitals Vital Signs Date Time Temp Pulse Resp B/P (MAP) Pulse Ox O2 Delivery O2 Flow Rate FiO2 08/07/17 08:00 98.4 80 16 126/75 (92) 97 08/07/17 07:10 Room Air 08/07/17 05:00 99.1 84 20 130/79 (96) 96 08/07/17 04:00 Nasal Cannula 2.00 08/07/17 00:00 Nasal Cannula 2.00 08/06/17 23:23 99.1 85 22 123/73 (90) 95 08/06/17 21:12 98.1 89 18 132/76 (94) 96 08/06/17 20:10 Nasal Cannula 2.00 08/06/17 20:00 89 08/06/17 16:30 98.3 83 20 132/85 (101) 99 08/06/17 16:14 82 18 132/84 (100) 100 08/06/17 14:00 100 21 110/62 (78) 99 Room Air 08/06/17 13:00 108 25 117/65 (82) 98 Nasal Cannula 2.00 08/06/17 12:00 122 24 140/73 (95) 96 Nasal Cannula 2.00 08/06/17 11:13 126 21 163/103 (123) 08/06/17 10:52 95 Room Air 08/06/17 10:52 103.1 136 25 163/99 (120) 95 08/06/17 10:52 103.1 136 25 163/99 (120) 95 Room Air I/O 08/06/17 08/06/17 08/06/17 08/07/17 08/07/17 08/07/17 07:00 15:00 23:00 07:00 15:00 23:00 Intake Total 2300 ml 1600 ml 1455 ml Output Total 300 ml Balance 2300 ml 1600 ml 1155 ml Intake Oral 240 ml IV Total 2300 ml 1600 ml 1215 ml Output Urine Total 300 ml # Bowel Movements 0 Result Diagram: 08/07/17 0540 08/07/17 0540 Imaging Last Impressions Chest X-Ray 08/06/17 1100 Signed Impressions: Service Date/Time: July 11:29 - CONCLUSION: 1. Minimal basilar and dependent opacity most characteristic of atelectasis. No dense consolidation seen. Murray Schreiber MD Maxillofacial CT 08/06/17 0000 Signed Impressions: Service Date/Time: , August 06, 2017 12:36 - CONCLUSION: 1. Right-sided facial soft tissue swelling is seen. This could be related to an inflamed parotid gland. No abnormal fluid collection or abscess. 2. No soft tissue mass or adenopathy. Ra Mcdaniel MD Head CT 08/06/17 0000 Signed Impressions: Service Date/Time: July 12:36 - CONCLUSION: No acute intracranial disease. Ra Mcdaniel MD Objective Remarks GENERAL: Sleepy, snoring, no acute distress. SKIN: Warm and dry. HEAD: Normocephalic. Scalp erythema appears to be slightly enlarged. Right eyelid area is also somewhat swollen. EYES: No scleral icterus. No injection or drainage. NECK: Supple, trachea midline. No JVD or lymphadenopathy. CARDIOVASCULAR: Regular rate and rhythm without murmurs, gallops, or rubs. RESPIRATORY: Breath sounds equal bilaterally. No accessory muscle use. GASTROINTESTINAL: Abdomen soft, non-tender, nondistended. MUSCULOSKELETAL: No cyanosis, or edema. BACK: Nontender without obvious deformity. No CVA tenderness. Procedures None A/P Problem List: (1) Severe sepsis ICD Code: A41.9 - Sepsis, unspecified organism; R65.20 - Severe sepsis without septic shock Status: Acute (2) Hypomagnesemia ICD Code: E83.42 - Hypomagnesemia (3) Hypokalemia ICD Code: E87.6 - Hypokalemia; R65.20 - Severe sepsis without septic shock Status: Acute (4) Thrombocytopenia ICD Code: D69.6 - Thrombocytopenia Status: Acute Assessment and Plan Mr. Mancuso is a 57-year-old male with a history of hypertension, alcohol abuse who presents to the emergency Department due to 4-5 day duration of right-sided temporal tenderness and erythema. He also felt very weak today. Upon arrival patient was tachycardic, tachypneic, fever of 103.1F and lactic acid 3.5. CT maxillofacial shows right-sided soft tissue infection. - Severe sepsis (patient had temperature 103.1F, heart rate 136, respiration 25 , lactic acid 3.5, known infection right temporal cellulitis) - Right temporal cellulitis - Possible parotid gland inflammation - Patient is afebrile. - Patient was started on vancomycin and Zosyn in the emergency department. We'll continue Vanco and Zosyn - Continue normal saline at 100 cc per hour. - Blood cultures NGTD. - Lactic acid 3.5 --> 1.5 --> 1.7. - Hypertension - Currently normotensive. If necessary, we'll consider first-line blood pressure medication calcium channel prashant or BRITANY inhibitor. - Hypomagnesemia - Hypokalemia - Replaced with IV magnesium sulfate and IV KCl. - K+ 3.0 --> 3.4. - Thrombocytopenia - Likely due to alcohol abuse - Plt 76 --> 65. - Alcohol abuse - Tobacco abuse - Patient is counseled to quit alcohol and tobacco. - Continue CIWA protocol. Full code. Brandenx. Good Regan DO Aug 07, 2017 10:07 am
[2017-08-07] MEDS ORDERED: FOLIC ACID 1 MG TAB PO ONE (10:15)
[2017-08-07] MEDS ORDERED: THIAMINE INJ 100 MG in SODIUM CHLORIDE 0.9% INJ 100 ML IV ONE (12:00)
[2017-08-07] MEDS: ENOXAPARIN SODIUM 40 MG/0.4 ML SYRINGE SQ SCH (13:29)
[2017-08-07] MEDS: ACETAMINOPHEN 325 MG TAB PO PRN (21:36)
[2017-08-07] MEDS ORDERED: cloNIDine HCL 0.1 MG TAB PO ONE (22:45)
[2017-08-07] MEDS ORDERED: KETOROLAC TROMETHAMINE 30 MG/ML (IVP) VIAL IV PUSH ONE (22:45)
[2017-08-08] VITALS: BP 158/90; PULSE 86; RESP 20; TEMP 97.7; O2SAT 93
[2017-08-08 04:00] VITALS: BP 160/100; PULSE 81; RESP 22; TEMP 97.2; O2SAT 94
[2017-08-08] MEDS: PIPERACIL-TAZO 4.5 GM PREMIX 100 ML IV SCH (04:02)
[2017-08-08] MEDS ORDERED: cloNIDine HCL 0.1 MG TAB PO ONE (05:15)
[2017-08-08] MEDS: SODIUM CHLOR 0.9% 1000 ML INJ 1,000 ML IV SCH (05:29)
[2017-08-08] MEDS: LORazepam 2 MG/ML VIAL IV PUSH PRN (05:38)
[2017-08-08 07:56] VITALS: PULSE 68
[2017-08-08 08:00] VITALS: BP 161/106; PULSE 69; RESP 20; TEMP 97.6; O2SAT 98
[2017-08-08] MEDS ORDERED: PHARMACY ORDERED LAB ONE ×2 (08:45→20:45)
[2017-08-08] MEDS ORDERED: FOLIC ACID 1 MG TAB PO SCH (09:00)
[2017-08-08] MEDS ORDERED: THIAMINE INJ 100 MG in SODIUM CHLORIDE 0.9% INJ 100 ML IV SCH (09:00)
[2017-08-08] MEDS: VANCOMYCIN INJ 1,500 MG in SODIUM CHLORID 0.9% 500 ML INJ 500 ML IV SCH (09:02)
[2017-08-08] MEDS: SODIUM CHLORIDE 0.9% FLUSH 10 ML FLUSH IV FLUSH SCH (09:02)
[2017-08-08] MEDS: DOCUSATE SODIUM 50 MG/SENNA 8.6 MG TAB PO SCH (09:02)
[2017-08-08] MEDS ORDERED: amLODIPine BESYLATE 5 MG TAB PO ONE (10:30)
--- NOTE | 2017-08-08 11:27 | HHI.PR ---
Subjective Remarks Follow-up for scalp cellulitis, alcohol withdrawal. Much more alert today. Getting up and going to the bathroom. No fever, chills. He complains of right sided neck soft tissue swelling. Objective Vitals Vital Signs Date Time Temp Pulse Resp B/P (MAP) Pulse Ox O2 Delivery O2 Flow Rate FiO2 08/08/17 09:45 21 08/08/17 08:00 97.6 69 20 161/106 (124) 98 08/08/17 04:00 97.2 81 22 160/100 (120) 94 08/08/17 04:00 Nasal Cannula 2.00 08/08/17 00:00 88 Nasal Cannula 2.00 08/08/17 00:00 97.7 86 20 158/90 (112) 93 08/07/17 22:48 21 08/07/17 21:55 170/100 (123) Automatic Cuff 08/07/17 20:00 Room Air 08/07/17 20:00 102.4 103 22 179/106 (130) 95 08/07/17 20:00 101 08/07/17 16:00 97.4 86 18 145/68 (93) 98 08/07/17 15:04 86 08/07/17 15:04 96 Room Air 21 08/07/17 12:00 97.4 78 18 127/82 (97) 96 I/O 08/07/17 08/07/17 08/07/17 08/08/17 08/08/17 08/08/17 07:00 15:00 23:00 07:00 15:00 23:00 Intake Total 1455 ml 500 ml 2060 ml 1085 ml Output Total 300 ml Balance 1155 ml 500 ml 2060 ml 1085 ml Intake Oral 240 ml 960 ml IV Total 1215 ml 500 ml 1100 ml 1085 ml Output Urine Total 300 ml # Voids 5 3 # Bowel Movements 0 2 1 Result Diagram: 08/07/17 0540 08/07/17 0540 Imaging Last Impressions Chest X-Ray 08/06/17 1100 Signed Impressions: Service Date/Time: July 11:29 - CONCLUSION: 1. Minimal basilar and dependent opacity most characteristic of atelectasis. No dense consolidation seen. Murray Schreiber MD Maxillofacial CT 08/06/17 0000 Signed Impressions: Service Date/Time: July 12:36 - CONCLUSION: 1. Right-sided facial soft tissue swelling is seen. This could be related to an inflamed parotid gland. No abnormal fluid collection or abscess. 2. No soft tissue mass or adenopathy. Ra Mcdaniel MD Head CT 08/06/17 0000 Signed Impressions: Service Date/Time: July 12:36 - CONCLUSION: No acute intracranial disease. Ra Mcdaniel MD Objective Remarks GENERAL: Sleepy, snoring, no acute distress. SKIN: Warm and dry. HEAD: Normocephalic. Scalp erythema appears to be slightly enlarged. Right eyelid area is also somewhat swollen. EYES: No scleral icterus. No injection or drainage. NECK: Supple, trachea midline. No JVD or lymphadenopathy. CARDIOVASCULAR: Regular rate and rhythm without murmurs, gallops, or rubs. RESPIRATORY: Breath sounds equal bilaterally. No accessory muscle use. GASTROINTESTINAL: Abdomen soft, non-tender, nondistended. MUSCULOSKELETAL: No cyanosis, or edema. BACK: Nontender without obvious deformity. No CVA tenderness. Procedures None A/P Problem List: (1) Severe sepsis ICD Code: A41.9 - Sepsis, unspecified organism; R65.20 - Severe sepsis without septic shock Status: Acute (2) Hypomagnesemia ICD Code: E83.42 - Hypomagnesemia (3) Hypokalemia ICD Code: E87.6 - Hypokalemia; R65.20 - Severe sepsis without septic shock Status: Acute (4) Thrombocytopenia ICD Code: D69.6 - Thrombocytopenia Status: Acute Assessment and Plan Mr. Mancuso is a 57-year-old male with a history of hypertension, alcohol abuse who presents to the emergency Department due to 4-5 day duration of right-sided temporal tenderness and erythema. He also felt very weak today. Upon arrival patient was tachycardic, tachypneic, fever of 103.1F and lactic acid 3.5. CT maxillofacial shows right-sided soft tissue infection. - Severe sepsis (patient had temperature 103.1F, heart rate 136, respiration 25 , lactic acid 3.5, known infection right temporal cellulitis) - Right temporal cellulitis - Possible parotid gland inflammation - Patient is afebrile now, - Patient was started on vancomycin and Zosyn in the emergency department. We'll continue Vanco and Zosyn - d/c IV fluid. - Blood cultures NGTD. - Lactic acid 3.5 --> 1.5 --> 1.7. - Hypertension - start Amlodipine 5mg Qday. - Hypomagnesemia - Hypokalemia - Replaced with IV magnesium sulfate and IV KCl. - K+ 3.0 --> 3.4. - Thrombocytopenia - Likely due to alcohol abuse - Plt 76 --> 65. - Alcohol abuse - Tobacco abuse - Patient is counseled to quit alcohol and tobacco. - Continue CIWA protocol. Will consult PT. Full code. Feng. Good Regan DO Aug 08, 2017 11:27 am
[2017-08-08 11:47] VITALS: BP 164/108; PULSE 82; RESP 20; O2SAT 94
[2017-08-08] MEDS ORDERED: oxyCODONE/ACETAMINOPHEN 7.5 MG/325 MG TAB PO PRN (12:45)
[2017-08-08] MEDS: ENOXAPARIN SODIUM 40 MG/0.4 ML SYRINGE SQ SCH (12:56)
[2017-08-08] MEDS ORDERED: MORPHINE SULFATE 4 MG/ML INJ IV PUSH PRN (13:00)
[2017-08-08] MEDS ORDERED: AMOX875T2 PO (13:28)
[2017-08-08] MEDS ORDERED: VALT500T PO (13:28)
[2017-08-08] MEDS ORDERED: valACYclovir HCL 500 MG TAB PO SCH (14:00)
[2017-08-08] MEDS ORDERED: AMOXICILLIN/CLAVULANATE K 875 MG TAB PO SCH (21:00)
[2017-08-09] MEDS ORDERED: amLODIPine BESYLATE 5 MG TAB PO SCH (09:00)
--- NOTE | 2017-08-10 07:51 | HHI.DS ---
Discharge Summary Admission Date Aug 06, 2017 at 1:33 pm Discharge Date: Aug 08, 2017 Admitting Diagnosis severe sepsis, facial cellulitis (1) Severe sepsis ICD Code: A41.9 - Sepsis, unspecified organism; R65.20 - Severe sepsis without septic shock Status: Acute (2) Hypomagnesemia ICD Code: E83.42 - Hypomagnesemia (3) Hypokalemia ICD Code: E87.6 - Hypokalemia; R65.20 - Severe sepsis without septic shock Status: Acute (4) Thrombocytopenia ICD Code: D69.6 - Thrombocytopenia Status: Acute (5) Shingles ICD Code: B02.9 - Zoster without complications Diagnosis: Principal Procedures None Brief History - From Admission Mr. Mancuso is a 57-year-old male with a history of hypertension who presents to the emergency department due to right sided scalp tenderness and erythema. About 4-5 days ago he started noticing pain and redness on his right temporal area. He denies any fever, chills at home. Denies any nausea, vomiting or vision changes. Today he was walking from his brother's house and felt very weak. He denies any trouble chewing food, no dysphagia. Denies any chest pain, shortness of breath. No changes in bladder or bowel habits. On arrival temperature 103.1F, pulse 136, respiration 25, blood pressure 163/99, oxygen saturation 95% on room air. WBC 7.8, hemoglobin 14.2 hematocrit 42.5 MCV 96.6 platelets 76. Sodium 135, potassium 3.0, BUN 13, creatinine 0.92, random glucose 136. Lactic acid 3.5. Head CT shows no acute intracranial disease. Maxillofacial CT indicates right-sided facial soft tissue swelling possibly related to inflamed parotid gland. No abnormal fluid collection or abscess. CBC/BMP: 08/07/17 0540 08/07/17 0540 Imaging Last Impressions Chest X-Ray 08/06/17 1100 Signed Impressions: Service Date/Time: July 11:29 - CONCLUSION: 1. Minimal basilar and dependent opacity most characteristic of atelectasis. No dense consolidation seen. Murray Schreiber MD Maxillofacial CT 08/06/17 0000 Signed Impressions: Service Date/Time: , August 06, 2017 12:36 - CONCLUSION: 1. Right-sided facial soft tissue swelling is seen. This could be related to an inflamed parotid gland. No abnormal fluid collection or abscess. 2. No soft tissue mass or adenopathy. Ra Mcdaniel MD Head CT 08/06/17 0000 Signed Impressions: Service Date/Time: July 12:36 - CONCLUSION: No acute intracranial disease. Ra Mcdaniel MD PE at Discharge GENERAL: Sleepy, snoring, no acute distress. SKIN: Warm and dry. HEAD: Normocephalic. Scalp erythema appears to be slightly enlarged. Pain on palpation. Right eyelid area is also somewhat swollen. EYES: No scleral icterus. No injection or drainage. NECK: Supple, trachea midline. No JVD or lymphadenopathy. CARDIOVASCULAR: Regular rate and rhythm without murmurs, gallops, or rubs. RESPIRATORY: Breath sounds equal bilaterally. No accessory muscle use. GASTROINTESTINAL: Abdomen soft, non-tender, nondistended. MUSCULOSKELETAL: No cyanosis, or edema. BACK: Nontender without obvious deformity. No CVA tenderness. Pt update on day of discharge Patient complains of pain from the scalp lesions. He also wants to get up and leave against medical advice. After discussing at length, he agreed to stay in the hospital. Patient, however, later on decided to leave Against Medical Advice. RN was able to give him Rx for Valtrex and Augmentin. Hospital Course Mr. Mancuso is a 57-year-old male with a history of hypertension, alcohol abuse who presents to the emergency Department due to 4-5 day duration of right-sided temporal tenderness and erythema. He also felt very weak today. Upon arrival patient was tachycardic, tachypneic, fever of 103.1F and lactic acid 3.5. CT maxillofacial shows right-sided soft tissue infection. - Severe sepsis (patient had temperature 103.1F, heart rate 136, respiration 25 , lactic acid 3.5, known infection right temporal cellulitis) - Right temporal cellulitis - Shingles of the scalp - Possible parotid gland inflammation - Patient received Vanc/Zosyn. We discontinued IV Abx and started patient on Valtrex and Augmentin. - Lactic acid 3.5 --> 1.5 --> 1.7. - Hypertension - Amlodipine 5mg Qday. - Hypomagnesemia - Hypokalemia - Replaced with IV magnesium sulfate and IV KCl. - K+ 3.0 --> 3.4. - Thrombocytopenia - Likely due to alcohol abuse - Plt 76 --> 65. - Alcohol abuse - Tobacco abuse - Patient is counseled to quit alcohol and tobacco. - Continue CIWA protocol. Patient left AMA on 08/08/2017. Pt Condition on Discharge: Stable Discharge Disposition: Discharge Home (Patient left against medical advice. ) Discharge Time: <= 30 minutes Discharge Instructions DIET: Follow Instructions for: As Tolerated, No Restrictions Follow up Referrals: PCP Follow-up - 1 Week New Medications: Amoxicillin-Clavulanate (Amoxicillin-Clavulanate) 875-125 mg Tab 875 MG PO Q12HR for Infection, #20 TAB not for use in CrCl <30 mL/minute Valacyclovir (Valtrex) 500 Mg Tab 1000 MG PO Q8HR for Infection, #30 TAB Good Regan DO Aug 10, 2017 07:51
[2017-08-10] MEDS ORDERED: THIAMINE HCL 100 MG TAB PO SCH (09:00)
== END 2017-08-08 16:40 | disposition left against medical advice (07) | DRG 872 ==
LOC: NEPC 10:45 → NEDA 13:33 → N04B 16:29
PROVIDERS: ADMIT Hospitalist; ATTEND Hospitalist
DX: A41.9 Sepsis, unspecified organism (principal); D69.59 Other secondary thrombocytopenia; L03.811 Cellulitis of head [any part, except face]; F10.239 Alcohol dependence with withdrawal, unspecified; B02.9 Zoster without complications; E83.42 Hypomagnesemia; I10 Essential (primary) hypertension; R65.20 Severe sepsis without septic shock; E87.6 Hypokalemia; F17.200 Nicotine dependence, unspecified, uncomplicated
CPT/HCPCS: 70450; 70487; 71010; 80048; 80053; 81001; 82550; 82805; 83605; 83735; 84100; 84155; 84484; 85007; 85027; 85610; 85730; 87040; 93005; 96365; 96367; J1650; J1885; J2060; J2543; J3370; J3411; J3475; J3480; J7030; J7040; J7050; Q9967

== ENCOUNTER 2018-01-01 06:29 | Emergency (ER) | payer SELFPAY ==
[~2018-01-01] VITALS: Ht 182.9 cm; Wt 79.5 kg
[~2018-01-01 06:29] MED LIST changes: -1-ME1LIQ PO; +AMOX875T2 PO; -CEPH500C3 PO; -CYCL-36 PO; -IBUP800 PO; -NAPR500 PO; -PERC5TAB12 PO; +VALT500T PO
[2018-01-01 06:36] VITALS: BP 152/91; PULSE 79; RESP 16; TEMP 98; O2SAT 97
[2018-01-01] MEDS ORDERED: SODIUM CHLOR 0.9% 1000 ML INJ 1,000 ML IV SCH (06:54)
--- NOTE | 2018-01-01 06:57 | PD ---
HPI Chief Complaint: Abdominal Pain Time Seen by Provider: 06:52 Travel History International Travel<30 days: No Contact w/Intl Traveler<30days: No Traveled to known affect area: No History of Present Illness HPI 57-year-old male here for evaluation of epigastric abdominal pain. The patient reports having pain for the last 2 weeks, worse today. He rates the pain as sharp, nonradiating, moderate to severe, worse after eating. He felt nauseous and vomited last night and states his emesis was clear, nonbloody. No diarrhea. History of appendectomy. No fevers or chills. He drinks alcohol occasionally. 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 denies Reported Meds & Prescriptions Reported Meds & Active Scripts Active Review of Systems Except as stated in HPI: all other systems reviewed are Neg Physical Exam Narrative GENERAL: Well-developed, well-nourished, comfortable, no apparent distress. SKIN: Focused skin assessment warm/dry. No rash. HEAD: Atraumatic. Normocephalic. EYES: Pupils equal and round. No scleral icterus. No injection or drainage. ENT: Mucous membranes pink and moist. NECK: Trachea midline. No JVD. CARDIOVASCULAR: Regular rate and rhythm. RESPIRATORY: No accessory muscle use. Clear to auscultation. Breath sounds equal bilaterally. GASTROINTESTINAL: Abdomen soft, nondistended. Mild epigastric tenderness without peritoneal signs. Normal bowel sounds. No hernias. MUSCULOSKELETAL: No obvious deformities. No clubbing. No cyanosis. No edema. NEUROLOGICAL: Awake and alert. No obvious cranial nerve deficits. Motor grossly within normal limits. Normal speech. PSYCHIATRIC: Appropriate mood and affect; insight and judgment normal. Data Data Last Documented VS Vital Signs Date Time Temp Pulse Resp B/P (MAP) Pulse Ox O2 Delivery O2 Flow Rate FiO2 01/01/18 08:23 91 16 164/103 (123) 98 Room Air 01/01/18 06:36 98.0 Orders Orders Complete Blood Count With Diff (01/01/18 06:54) Comprehensive Metabolic Panel (01/01/18 06:54) Lipase (01/01/18 06:54) Prothrombin Time / Inr (Pt) (01/01/18 06:54) Act Partial Throm Time (Ptt) (01/01/18 06:54) Urinalysis - C+S If Indicated (01/01/18 06:54) Ct Abd/Pel W Iv Contrast(Rout) (01/01/18 06:54) Iv Access Insert/Monitor (01/01/18 06:54) Ecg Monitoring (01/01/18 06:54) Oximetry (01/01/18 06:54) Ondansetron Inj (Zofran Inj) (01/01/18 07:00) Pantoprazole Inj (Protonix Inj) (01/01/18 07:00) Sodium Chlor 0.9% 1000 Ml Inj (Ns 1000 M (01/01/18 06:54) Sodium Chloride 0.9% Flush (Ns Flush) (01/01/18 07:00) Electrocardiogram (01/01/18 06:54) Al-Mag Hy-Si 40-40-4 Mg/Ml Liq (Mag-Al P (01/01/18 07:00) Lidocaine 2% Viscous (Xylocaine 2% Visco (01/01/18 07:00) Morphine Inj (Morphine Inj) (01/01/18 07:00) Iohexol 350 Inj (Omnipaque 350 Inj) (01/01/18 08:05) Labs Laboratory Tests Test 01/01/18 07:00 01/01/18 07:59 01/01/18 08:20 White Blood Count 7.1 TH/MM3 Red Blood Count 4.47 MIL/MM3 Hemoglobin 14.3 GM/DL Hematocrit 42.2 % Mean Corpuscular Volume 94.4 FL Mean Corpuscular Hemoglobin 31.9 PG Mean Corpuscular Hemoglobin Concent 33.8 % Red Cell Distribution Width 14.4 % Platelet Count 123 TH/MM3 Mean Platelet Volume 10.6 FL Neutrophils (%) (Auto) 53.6 % Lymphocytes (%) (Auto) 25.0 % Monocytes (%) (Auto) 11.5 % Eosinophils (%) (Auto) 8.5 % Basophils (%) (Auto) 1.4 % Neutrophils # (Auto) 3.8 TH/MM3 Lymphocytes # (Auto) 1.8 TH/MM3 Monocytes # (Auto) 0.8 TH/MM3 Eosinophils # (Auto) 0.6 TH/MM3 Basophils # (Auto) 0.1 TH/MM3 CBC Comment DIFF FINAL Differential Comment Blood Urea Nitrogen 14 MG/DL Creatinine 0.67 MG/DL Random Glucose 85 MG/DL Total Protein 6.7 GM/DL Albumin 3.0 GM/DL Calcium Level 8.6 MG/DL Alkaline Phosphatase 68 U/L Aspartate Amino Transf (AST/SGOT) 39 U/L Alanine Aminotransferase (ALT/SGPT) 25 U/L Total Bilirubin 1.4 MG/DL Sodium Level 141 MEQ/L Potassium Level 4.2 MEQ/L Chloride Level 106 MEQ/L Carbon Dioxide Level 29.9 MEQ/L Anion Gap 5 MEQ/L Estimat Glomerular Filtration Rate 123 ML/MIN Lipase 226 U/L Prothrombin Time 12.6 SEC Prothromb Time International Ratio 1.2 RATIO Activated Partial Thromboplast Time 24.0 SEC Urine Color YELLOW Urine Turbidity CLEAR Urine pH 7.0 Urine Specific Wendell 1.018 Urine Protein NEG mg/dL Urine Glucose (UA) NEG mg/dL Urine Ketones NEG mg/dL Urine Occult Blood NEG Urine Nitrite NEG Urine Bilirubin NEG Urine Urobilinogen LESS THAN 2.0 MG/DL Urine Leukocyte Esterase SMALL Urine RBC 1 /hpf Urine WBC 1 /hpf Urine Squamous Epithelial Cells <1 /hpf Microscopic Urinalysis Comment CULT NOT INDICATED MDM Medical Decision Making Medical Screen Exam Complete: Yes Emergency Medical Condition: Yes Interpretation(s) EKG: Sinus, rate 72, normal axis, normal intervals, no acute ischemic abnormality. Differential Diagnosis Pancreatitis, hepatobiliary disease, peptic ulcer disease, bowel obstruction, ACS Narrative Course Initial vital signs show heart rate 79, blood pressure 152/91, pulse ox 97% on room air, oral temp of 98F. CBC: WBC 7.1, hemoglobin 14.3, hematocrit 42.2, platelets 123. CMP is essentially unremarkable. Lipase is 226. UA is not suggestive of UTI. CT abdomen pelvis: CONCLUSION: 1. There is a very large varix which extends from the superior mesenteric vein all the way down into the low pelvis. There are numerous varices in the ischial rectal fossa. There is suspicion of an AVM arising from the hypogastric circulation on the right. Exact etiology of this is uncertain. 2. No free air or free fluid is identified. No findings to indicate bowel obstruction is evident. The solid organs of the abdomen are intact. Patient was given a dose of morphine, Zofran, Pepcid, and a GI cocktail. On reassessment he is sleeping comfortably. He admits to history of heavy alcohol use, however states that he only drinks alcohol occasionally. His emesis was clear and was nonbloody. He also denies coffee-ground emesis. No melena or hematochezia. States his pain is improved. States he has a primary care physician. He is stable for discharge home with outpatient follow-up with his primary care physician this week. I will also given the name of the GI physician pottery decoration designer with whom to follow-up with as well. He was informed on when to return to the emergency department. He verbalizes understanding and agreement with plan. Diagnosis Primary Impression: Abdominal pain Qualified Codes: R10.13 - Epigastric pain Additional Impressions: Varices, esophageal Qualified Codes: I85.00 - Esophageal varices without bleeding Varices, gastric Rectal varices Referrals: Carlos Martinez MD 3 days Belt Tender Primary Care Physician 3 days Additional Instructions: Follow-up with your primary care physician this week. Follow-up with cloth classer Dr. Martinez or a cloth classer of your choice this week. Return to the emergency room if worsening symptoms or any other concerns. Disposition: 01 DISCHARGE HOME Condition: Stable Jose Juan Lemus MD Jan 01, 2018 06:57
[2018-01-01] MEDS ORDERED: LIDOCAINE VISCOUS 2% SOLN 15 ML UDC PO ONE (07:00)
[2018-01-01] MEDS ORDERED: MORPHINE SULFATE 2 MG/ML INJ IV PUSH ONE (07:00)
[2018-01-01] MEDS ORDERED: SODIUM CHLORIDE 0.9% FLUSH 10 ML FLUSH IV FLUSH PRN (07:00)
[2018-01-01] MEDS ORDERED: ALUMINUM/MAGNESIUM/SIMETH 30 ML CUP PO ONE (07:00)
[2018-01-01] MEDS ORDERED: PANTOPRAZOLE SODIUM 40 MG VIAL IVP ONE (07:00)
[2018-01-01] MEDS ORDERED: ONDANSETRON HCL 4 MG/2 ML VIAL IVP ONE (07:00)
[2018-01-01 07:30] LABS: AUTOMATED NEUTROPHIL # 3.8 TH/MM3 (1.8-7.7); BASOPHIL # 0.1 TH/MM3 (0-0.2); BASOPHIL % 1.4 % (0.0-2.0); EOSINOPHIL # 0.6 TH/MM3 (0-0.4); EOSINOPHIL % 8.5 % (0.0-4.0); HEMATOCRIT 42.2 % (39.0-51.0); HEMOGLOBIN 14.3 GM/DL (13.0-17.0); LYMPHOCYTE # 1.8 TH/MM3 (1.0-4.8); MEAN CELL VOLUME 94.4 FL (80.0-100.0); MEAN CORPUSCULAR HEMOGLOBIN 31.9 PG (27.0-34.0); MEAN CORPUSCULAR HGB CONC 33.8 % (32.0-36.0); MEAN PLATELET VOLUME 10.6 FL (7.0-11.0); MONO % 11.5 % (0.0-8.0); MONOCYTE # 0.8 TH/MM3 (0-0.9); NEUT % 53.6 % (16.0-70.0); PLATELET COUNT 123 TH/MM3 (150-450); RED BLOOD COUNT 4.47 MIL/MM3 (4.50-5.90); RED CELL DISTRIBUTION WIDTH 14.4 % (11.6-17.2); WHITE BLOOD COUNT 7.1 TH/MM3 (4.0-11.0)
[2018-01-01 07:49] LABS: ALKALINE PHOSPHATASE 68 U/L (45-117); TOTAL BILIRUBIN ADULT 1.4 MG/DL (0.2-1.0); TOTAL PROTEIN 6.7 GM/DL (6.4-8.2)
[2018-01-01 07:52] VITALS: O2SAT 99
[2018-01-01 07:56] LABS: ALT (GPT) 25 U/L (12-78); BICARBONATE 29.9 MEQ/L (21.0-32.0); BLOOD UREA NITROGEN 14 MG/DL (7-18); CALCIUM 8.6 MG/DL (8.5-10.1); CHLORIDE 106 MEQ/L (98-107); CREATININE 0.67 MG/DL (0.60-1.30); GLOMERULAR FILTRATION RATE 123 ML/MIN (>89); GLUCOSE,RANDOM 85 MG/DL (74-106); SODIUM (NA) 141 MEQ/L (136-145)
[2018-01-01 07:57] LABS: AST (GOT) 39 U/L (15-37)
[2018-01-01] MEDS ORDERED: IOHEXOL 350 MG/ML 10 ML VIAL (for RAD DIAG) IVCONTRAST ONE (08:05)
[2018-01-01 08:23] VITALS: BP 164/103; PULSE 91; RESP 16; O2SAT 98
--- NOTE | 2018-01-01 08:31 | RADRPT ---
EXAM DATE/TIME: 01/01/2018 08:02 [facility] COMPARISON: CT FACIAL BONES W CONTRAST, August 06, 2017, 12:36. INDICATIONS : Epigastric pain. IV CONTRAST: 91 cc Omnipaque 350 (iohexol) IV ORAL CONTRAST: No oral contrast ingested. RADIATION DOSE: 5.42 CTDIvol (mGy) MEDICAL HISTORY : Cardiovascular disease. Hypertension. SURGICAL HISTORY : Appendectomy. ENCOUNTER: Initial ACUITY: 1 day PAIN SCALE: 4/10 LOCATION: epigastric area TECHNIQUE: Volumetric scanning of the abdomen and pelvis was performed. Using automated exposure control and ad justment of the mA and/or kV according to patient size, radiation dose was kept as low as reasonably achievable to obtain optimal diagnostic quality images. DICOM format image data is available electro nically for review and comparison. FINDINGS: The limited portion of lung bases lies demonstrates minimal atelectatic change in the right lower lob e. The lung bases are otherwise clear. The appearance of the liver, spleen, pancreas, adrenal glands and right kidney is within normal limits. Examination of the left kidney demonstrates a 1.1 x 1.4 cm simple cyst within the medial cortex. The visualized loops of small and large bowel demonstrate a moderate amount of stool within the ascen ding and proximal transverse colon. There are no findings to indicate bowel obstruction. No free intr aperitoneal air is identified. No free fluid is present. There is no free fluid within the pelvis. No iliac or inguinal adenopathy is seen. The examination does demonstrate a very large varix which extends from the low pelvis with multiple v arices in the ischial rectal fossa. This extends up into the abdomen and appears to communicate with the superior mesenteric vein. This vessel is quite large in size at some points measuring up to 1.7 c m. There is no evidence of hemorrhage from this. CONCLUSION: 1. There is a very large varix which extends from the superior mesenteric vein all the way down into the low pelvis. There are numerous varices in the ischial rectal fossa. There is suspicion of an AVM arising from the hypogastric circulation on the right. Exact etiology of this is uncertain. 2. No free air or free fluid is identified. No findings to indicate bowel obstruction is evident. The solid organs of the abdomen are intact. Shreyas Reddy MD on January 01, 2018 at 8:20 Board Certified Radiologist. This report was verified electronically.
[2018-01-01 08:32] LABS: BILIRUBIN, URINE NEG (NEG); BLOOD, URINE NEG (NEG); GLUCOSE,URINE NEG (NEG); KETONE, URINE NEG (NEG); NITRITE,URINE NEG (NEG); SQUAMOUS EPITHELIAL CELL URINE <1 /hpf (0-5); URINE COLOR YELLOW (YELLW/STRAW); URINE LEUKOCYTE ESTERASE SMALL (NEG)
[2018-01-01 08:37] LABS: INTERNATIONAL NORMALIZED RATIO 1.2 RATIO; PROTHROMBIN TIME - PATIENT 12.6 SEC (9.8-11.6)
--- NOTE | 2018-01-01 23:38 | EKG ---
Date Performed: 01/01/2018 Time Performed: 07:56:20 PTAGE: 57 years EKG: Sinus rhythm NONSPECIFIC T-WAVE ABNORMALITY BORDERLINE ECG PREVIOUS TRACING : 08/06/2017 10.54 Compared to prior tracing, rate slower DOCTOR: Kristi Bruno Interpretating Date/Time 01/01/2018 23:36:49
== END 2018-01-01 09:53 | disposition home or self-care (01) ==
LOC: NEPE 06:29
DX: R10.13 Epigastric pain (principal); I85.00 Esophageal varices without bleeding; I86.4 Gastric varices; I86.8 Varicose veins of other specified sites; R11.2 Nausea with vomiting, unspecified; R94.31 Abnormal electrocardiogram [ECG] [EKG]; I10 Essential (primary) hypertension; F17.200 Nicotine dependence, unspecified, uncomplicated; Z87.19 Personal history of other diseases of the digestive system
CPT/HCPCS: 74177; 80053; 81001; 83690; 85025; 85610; 85730; 93005; 96360; 99285; C9113; J7030; Q9967

== ENCOUNTER 2018-04-02 20:58 | Emergency (ER) | END 2018-04-02 23:26 | disposition left against medical advice (07) | DX: R19.8 Other specified symptoms and signs involving the digestive system and abdomen (principal) ==

== ENCOUNTER 2018-04-02 23:37 | Emergency (ER) | END 2018-04-03 03:50 | disposition home or self-care (01) | DX: K29.20 Alcoholic gastritis without bleeding (principal); F17.200 Nicotine dependence, unspecified, uncomplicated; F10.10 Alcohol abuse, uncomplicated; Y90.0 Blood alcohol level of less than 20 mg/100 ml | CPT/HCPCS: 80053; 80307; 83690; 85025; 96360; 99284; J7030 ==

== ENCOUNTER 2018-04-25 07:57 | Emergency (ER) | payer SELFPAY ==
[~2018-04-25] VITALS: Ht 182.9 cm; Wt 75.0 kg
[~2018-04-25 07:57] MED LIST changes: -AMOX875T2 PO; +CARA1TAB6 PO; +RANI150T PO; -VALT500T PO
[2018-04-25 07:59] VITALS: BP 156/100; PULSE 98; RESP 16; TEMP 98.2; O2SAT 98
[2018-04-25] MEDS ORDERED: BACT800T5 PO (08:25)
[2018-04-25] MEDS ORDERED: CEPH-460 PO (08:25)
--- NOTE | 2018-04-25 08:26 | PD ---
HPI Chief Complaint: Skin Problem Time Seen by Provider: 08:08 Travel History International Travel<30 days: No Contact w/Intl Traveler<30days: No Traveled to known affect area: No History of Present Illness HPI 58-year-old male with history of GERD, presents emergency department for evaluation of 2 wounds on his right posterior forearm. He states they have been getting worse over the last week. He is uncertain how he sustained these wounds. He denies any injury. Denies any fever or chills. He denies any pain. He has no other symptoms to report. 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 denies Reported Meds & Prescriptions Reported Meds & Active Scripts Active Carafate (Sucralfate) 1 Gram Tab 1 Gm PO TID On empty stomach Ranitidine (Ranitidine HCl) 150 Mg Tab 150 Mg PO BID Review of Systems Except as stated in HPI: all other systems reviewed are Neg Physical Exam Narrative GENERAL: Unkempt male patient, ambulatory no acute distress. SKIN: Focused skin assessment warm/dry. There are 2 wounds on the posterior right forearm. Both are 7 cm in diameter, scabbed lesions but well demarcated edges At the same time. There is no significant erythema or edema. HEAD: Normocephalic. EYES: No scleral icterus. No injection or drainage. NECK: Supple, trachea midline. No JVD or lymphadenopathy. CARDIOVASCULAR: Regular rate and rhythm without murmurs, gallops, or rubs. RESPIRATORY: Breath sounds equal bilaterally. No accessory muscle use. MUSCULOSKELETAL: No cyanosis, or edema. BACK: Nontender without obvious deformity. No CVA tenderness. Data Data Last Documented VS Vital Signs Date Time Temp Pulse Resp B/P (MAP) Pulse Ox O2 Delivery O2 Flow Rate FiO2 04/25/18 07:59 98.2 98 16 156/100 (118) 98 Orders Orders Ed Discharge Order (04/25/18 08:20) MDM Medical Decision Making Medical Screen Exam Complete: Yes Emergency Medical Condition: Yes Medical Record Reviewed: Yes Differential Diagnosis Wound healing versus infected versus cellulitis versus fungal infection Narrative Course 58-year-old male presents emergency department for evaluation of wounds on his right forearm. Dementia nonspecific and he cannot recall a source. Patient will be started on oral antibiotics. I have encouraged follow-up with dermatology. He agrees to return immediately with acute worsening symptoms. Diagnosis Primary Impression: Wound, open, forearm Qualified Codes: S51.801A - Unspecified open wound of right forearm, initial encounter Referrals: Senior Maintenance Machinist Primary Care Physician Patient Instructions: Acute Wound Care (DC), General Instructions Additional Instructions: Keep the area clean and dry Do not pick at the lesions Seek dermatology evaluation Follow-up with primary care provider Return immediately with acute worsening symptoms Med/Other Pt SpecificInfo: Prescription(s) given Scripts Cephalexin (Keflex) 500 Mg Cap 500 MG PO Q6H for Infection for 5 Days, #20 CAP 0 Refills Prov: Valencia Infante 04/25/18 Sulfamethoxazole-Trimethoprim (Bactrim DS) 800-160 Mg Tab 1 TAB PO BID for Infection, #20 TAB 0 Refills Prov: Valencia Infante 04/25/18 Disposition: 01 DISCHARGE HOME Condition: Stable Valencia Infante Apr 25, 2018 08:26
== END 2018-04-25 09:05 | disposition home or self-care (01) ==
LOC: NEPD 07:57
DX: S51.801A Unspecified open wound of right forearm, initial encounter (principal); K21.9 Gastro-esophageal reflux disease without esophagitis; I10 Essential (primary) hypertension; F17.210 Nicotine dependence, cigarettes, uncomplicated; X58.XXXA Exposure to other specified factors, initial encounter
CPT/HCPCS: 99283